=== PATIENT | female | born 1975 | race Caucasian/White ===

== ENCOUNTER 2016-08-30 07:53 | Day surgery (SDC) | payer BC ==
[2016-08-26 10:45] LABS: BASOPHIL % 0.5 % (0-2); PLATELET COUNT 254 x10^3mcL (130-400); RED CELL DISTRIBUTION WIDTH 13.8 % (11.5-14.5)
[2016-08-26 11:00] LABS: ALBUMIN 3.6 g/dL (3.4-5.0); ALKALINE PHOSPHATASE 86 U/L (46-116); ALT/SGPT 24 U/L (14-59); AST/SGOT 26 U/L (15-37); BILIRUBIN TOTAL 0.5 mg/dL (0.20-1.00); CALCIUM 8.7 mg/dL (8.5-10.1); CARBON DIOXIDE 24.6 mmol/L (21-32); CHLORIDE SERUM 106 mmol/L (98-107); CREATININE SERUM 0.6 mg/dL (0.6-1.0); GFR1 > 60 mL/min; GLUCOSE SERUM 96 mg/dL (74-106); POTASSIUM SERUM 4.3 mmol/L (3.5-5.1); SODIUM SERUM 143 mmol/L (136-145); TOTAL PROTEIN, SERUM 7.5 g/dL (6.4-8.2)
[~2016-08-30] VITALS: Ht 154.9 cm; Wt 62.6 kg
[2016-08-30 08:18] VITALS: BP 112/73
[2016-08-30 15:35] VITALS: BP 110/72
== END 2016-08-30 15:25 | disposition home or self-care (01) ==
LOC: DS 07:53 → OR 10:00 → MA 10:00 → DS 10:00 → MA 10:30 → DS 15:25
PROVIDERS: Surgery
PROC: 0HBU0ZZ Excision of Left Breast, Open Approach (ICD-10-PCS; principal; 2016-08-30 12:00)
DX: N60.22 Fibroadenosis of left breast (principal); D24.2 Benign neoplasm of left breast; Z68.25 Body mass index [BMI] 25.0-25.9, adult
CPT/HCPCS: J0690; J2001; J2175; J2250; J3010; J3490